=== PATIENT | female | born 1950 | race Caucasian/White ===

== ENCOUNTER → 2017-10-18 | Outpatient (CLI) | payer MEDICARE, OTHER ==
[~2017-10-18] MED LIST: CIPROFLOXACIN500 M1 PO; CYMBALTA60 MG PO; EFFEXOR 5050 MG/1 T1 PO; IBUPROFEN 600600 M1 PO; LEXAPRO20 MG PO; MINIPRIN81 MG PO; MOBIC15 MG PO; NEURONTIN 300300 M1 PO; NEXIUM40 MG PO; NORCO 5-325 TA1 EACH PO; PREDNISONE 20 M20 M1 PO; ULTRAM 50MG TAB50 MG PO
== END ==
LOC: M.CT 11:00
DX: R91.1 Solitary pulmonary nodule (principal)

== ENCOUNTER → 2018-08-26 | Outpatient (CLI) | payer MEDICARE, OTHER | LOC: M.ULTRA 09:00 | DX: N28.1 Cyst of kidney, acquired (principal); R11.2 Nausea with vomiting, unspecified; R10.13 Epigastric pain ==

== ENCOUNTER 2019-02-04 09:26 | Emergency (ER) | payer MEDICARE, OTHER ==
[~2019-02-04] VITALS: Ht 165.1 cm; Wt 81.7 kg
[2019-02-04] MEDS ORDERED: CLEOCIN HCL150 MG PO (09:44)
[2019-02-04] MEDS ORDERED: QUININE SULFAT324 MG PO (09:44)
[2019-02-04] MEDS ORDERED: CLARITIN10 MG PO (09:44)
[2019-02-04 10:01] LABS: ABSOLUTE EOSINOPHILS 0.1 thou/uL (0.0-0.7); ABSOLUTE LYMPHOCYTES 0.5 thou/uL (0.8-5.3); ABSOLUTE MONOCYTES 0.3 thou/uL (0.0-1.2); ABSOLUTE NEUTROPHILS 4.8 thou/uL (1.6-8.1); BASOPHILS 0.7 %; EOSINOPHILS 2.3 %; HEMATOCRIT 39.6 % (37.0-47.0); HEMOGLOBIN 13.4 gm/dL (12.0-15.0); LYMPHOCYTES 9.3 %; MCH 30.3 pg (26.0-34.0); MCHC 33.9 g/dL (28.0-37.0); MCV 89.3 fL (80.0-100.0); MONOCYTES 5.6 %; MPV 7.7 fl. (7.2-11.1); NUCLEATED RBCS 0 /100WBC; PLATELET COUNT* 260 thou/uL (150-400); POLYS 82.1 %; RBC 4.43 mil/uL (4.20-5.00); RDW-CV 14.8 % (10.5-14.5); WBC 5.8 thou/uL (4.0-11.0)
[2019-02-04 10:09] LABS: CALCIUM 8.6 mg/dL (8.5-10.1); CREATININE 0.9 mg/dL (0.6-1.3); POTASSIUM 3.7 mmol/L (3.5-5.1)
[2019-02-04 10:19] LABS: ALBUMIN 3.4 g/dL (3.4-5.0); TOTAL BILIRUBIN 0.4 mg/dL (<0.1-1.0); TOTAL PROTEIN 7.1 g/dL (6.4-8.2)
[2019-02-04] MEDS ORDERED: FLEXERIL PO (10:54)
[2019-02-04 11:03] LABS: URINE BLOOD NEGATIVE (Negative); URINE CLARITY CLEAR; URINE COLOR YELLOW; URINE GLUCOSE-RANDOM NEGATIVE (Negative); URINE KETONES NEGATIVE (Negative); URINE LEUKOCYTES-REFLEX NEGATIVE (Negative); URINE NITRITE-REFLEX NEGATIVE (Negative); URINE PROTEIN 1+ (Negative); URINE SPECIFIC GRAVITY >= 1.030 (1.005-1.030); URINE UROBILINOGEN 0.2 E.U./dl (0.2-1.0)
[2019-02-04 11:10] VITALS: BP 139/62
[2019-02-04 11:10] LABS: ICTOTEST (BILI CONFIRMATORY) Negative (Negative); URINE BILIRUBIN 1+ (Negative)
--- NOTE | 2019-02-04 14:35 | EKG ---
[place] [address] ELECTROCARDIOGRAM REPORT Name: JUVE RAMAN Room: [facility]#: [id number] Admission: 02/04/19 Attend Phys: Discharge: 02/04/19 Date of : 46 Report #: [id number] THIS REPORT FOR: //name// [facility] ED Test Date: 2019-02-04 Test Time: 10:00:56 Pat Name: JUVE RAMAN Department: Room: Gender: F [employer]: : 1950 Requested By: Ike Blevins Order Number: [id number] MD: Modesto Trejo Measurements Intervals [place] Rate: 84 P: 60 GA: 127 QRS: -40 QRSD: 97 T: 3 QT: 374 QTc: 443 Interpretive Statements Sinus rhythm late transition Inferior infarct, old Compared to ECG 01/25/2017 10:51:04 no change Electronically Signed On 02-04-2019 14:34:45 CDT by Modesto Trejo [email or web address] <ELECTRONICALLY SIGNED> By: Modesto Trejo MD, [facility] 02/04/19 1434 1000 1000 Modesto Trejo MD, FACC /EPI
== END 2019-02-04 11:12 | disposition home or self-care (01) ==
LOC: M.ERS 09:26
PROVIDERS: Family Medicine
DX: M43.6 Torticollis (principal); M81.0 Age-related osteoporosis without current pathological fracture; Z88.2 Allergy status to sulfonamides; Z90.10 Acquired absence of unspecified breast and nipple

== ENCOUNTER → 2019-05-12 | Outpatient (CLI) | payer MEDICARE, OTHER ==
[~2019-05-12] MED LIST changes: +CLARITIN10 MG PO; +CLEOCIN HCL150 MG PO; +FLEXERIL PO; +QUININE SULFAT324 MG PO
== END ==
LOC: M.CT 12:40
DX: R91.8 Other nonspecific abnormal finding of lung field (principal); J98.4 Other disorders of lung; J92.9 Pleural plaque without asbestos

== ENCOUNTER → 2019-11-11 | Outpatient (CLI) | payer MEDICARE, OTHER | LOC: M.CT 07:20 | DX: R91.8 Other nonspecific abnormal finding of lung field (principal); J98.4 Other disorders of lung ==

== ENCOUNTER 2020-06-11 09:09 | Emergency (ER) | payer MEDICARE, OTHER ==
[~2020-06-11] VITALS: Ht 165.1 cm; Wt 76.2 kg
[2020-06-11] MEDS ORDERED: NORCO 5-325 TA1 EAC2 PO (10:14)
[2020-06-11 10:51] VITALS: BP 146/80
== END 2020-06-11 10:52 | disposition home or self-care (01) ==
LOC: M.ERS 09:09
DX: S86.911A Strain of unspecified muscle(s) and tendon(s) at lower leg level, right leg, initial encounter (principal); Z79.899 Other long term (current) drug therapy; Z88.2 Allergy status to sulfonamides; X50.1XXA Overexertion from prolonged static or awkward postures, initial encounter; Y93.89 Activity, other specified; Y92.89 Other specified places as the place of occurrence of the external cause; Y99.8 Other external cause status

== ENCOUNTER → 2020-06-16 | Outpatient (CLI) | payer MEDICARE, OTHER ==
[~2020-06-16] MED LIST changes: +NORCO 5-325 TA1 EAC2 PO
== END ==
LOC: M.MRI 10:51
PROVIDERS: ATTEND Nurse Practitioner Family
DX: S83.242A Other tear of medial meniscus, current injury, left knee, initial encounter (principal); X58.XXXA Exposure to other specified factors, initial encounter; Y93.89 Activity, other specified; Y92.89 Other specified places as the place of occurrence of the external cause; Y99.8 Other external cause status

== ENCOUNTER → 2021-03-30 | Outpatient (CLI) | payer MEDICARE, OTHER | LOC: M.LAB 13:09 | PROVIDERS: ATTEND Family Medicine | DX: Z20.1 Contact with and (suspected) exposure to tuberculosis (principal) ==